=== PATIENT | male | born 1945 | race Caucasian/White ===

== ENCOUNTER → 2021-05-22 10:18 | Outpatient (BNVA) | payer MEDICARE, OTHER, SELFPAY | PROVIDERS: PCP Internal Medicine; Referring Provider Internal Medicine; Visit Provider Internal Medicine Cardiovascular Disease | DX: I25.10 Atherosclerotic heart disease of native coronary artery without angina pectoris (principal) | CPT/HCPCS: 93005; 99212 ==

== ENCOUNTER 2021-06-05 08:06 | Outpatient (REF) | payer MEDICARE, OTHER, SELFPAY ==
[2021-06-05 08:55] LABS: Cholesterol 149 mg/dL; HDL Cholesterol 59 mg/dL; LDL Cholesterol Calculated 79 mg/dl; Triglycerides 55 mg/dL
[2021-06-10 22:47] LABS: CRP High Sensitivity 0.5 mg/L
== END 2021-06-05 08:07 | disposition home or self-care (01) ==
LOC: HO.LAB 08:06
PROVIDERS: PCP Internal Medicine; Visit Provider Internal Medicine Cardiovascular Disease
DX: I25.10 Atherosclerotic heart disease of native coronary artery without angina pectoris (principal); E78.5 Hyperlipidemia, unspecified
CPT/HCPCS: 36415; 80061; 86141

== ENCOUNTER → 2022-05-26 10:33 | Outpatient (BNVA) | payer MEDICARE, SELFPAY | PROVIDERS: PCP Internal Medicine; Referring Provider Internal Medicine; Visit Provider Internal Medicine Cardiovascular Disease | DX: I25.10 Atherosclerotic heart disease of native coronary artery without angina pectoris (principal); Z79.82 Long term (current) use of aspirin; Z79.899 Other long term (current) drug therapy | CPT/HCPCS: 93005; 99212 ==

== ENCOUNTER 2023-03-30 14:12 | Outpatient (REF) | payer MEDICARE, SELFPAY ==
--- NOTE | ~2023-03-30 | XR_ITS ---
EXAMINATION: XR SHOULDER, LEFT CLINICAL INFORMATION: Left shoulder pain following fall COMPARISON: None available. TECHNIQUE: AP external rotation, Grashey, scapular Y, and axillary views of the left shoulder. FINDINGS: There is no evidence of fracture or dislocation. There are mild degenerative changes in acromioclavicular joint. There are subtle tissue calcification seen on single view, adjacent to greater tuberosity. XR/XR shoulder LT min 2V IMPRESSION: Mild degenerative changes in acromioclavicular joint and calcific tendinitis.
== END 2023-03-30 14:13 | disposition home or self-care (01) ==
LOC: HO.XRAY 14:12
PROVIDERS: PCP Internal Medicine; Visit Provider Internal Medicine
DX: M25.511 Pain in right shoulder (principal); Z91.81 History of falling
CPT/HCPCS: 73030

== ENCOUNTER 2023-05-27 10:08 | Outpatient (AMB) | payer MEDICARE, SELFPAY ==
[2023-05-27 10:18] VITALS: BP 140/70; PULSE 72; BMI 25.1
--- NOTE | 2023-05-27 10:18 | A.OFFVIS_ITS ---
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 He is doing well overall from cardiac perspective although he fell recently, couple of months ago and injured his left shoulder and is still in lot of discomfort. Is suspected rotator cuff injury. He has no issues with mobility and walking. Denies any exertional chest pain or shortness of breath. His blood pressure is generally well controlled. Today slightly elevated. Last LDL is 49 mg/dL done at an outside facility. Takes all his medications. No heart failure symptoms. No prolonged palpitations irregular heartbeat. [facility] Medical History CAD (coronary artery disease) Surgical History Stented coronary artery History of ERCP Hx laparoscopic cholecystectomy Family History Father No problems noted. Mother CHF (congestive heart failure) Social History Patient Tobacco Use Status: Former Tobacco user Review of Systems Const Reports chills, Reports fatigue, Reports fever(s), Reports frequent falls, Reports weakness, Reports weight gain and Reports weight loss ENT Reports dizziness Card Reports chest pain, Reports leg edema, Reports lightheadedness, Reports palpitations, Reports dyspnea and Reports dyspnea on exertion Resp Reports cough, Reports dyspnea and Reports dyspnea on exertion GI Reports hematochezia Musc Reports abnormal gait, Reports muscle weakness, Reports numbness, Reports radiating pain into limb and Reports tingling Neuro Reports abnormal gait, Reports dizziness, Reports frequent falls, Reports numbness, Reports tingling and Reports weakness Endo Reports fatigue and Reports palpitations Physical Exam Vital Signs: Last Vital Signs Pulse 72 05/27/23 10:18 BP 140/70 H 05/27/23 10:18 BMI result Body Mass Index 25.1 Const General: cooperative, comfortable, no acute distress, well developed, alert, awake, Physically active and well groomed Nutritional Appearance: average body habitus and well nourished Orientation/consciousness: patient oriented x3 Limitations: no limitations Neck Neck: Yes trachea midline, Yes supple and Yes no JVD Resp Effort & Inspection: normal respiratory effort Auscultation: clear to auscultation bilaterally Cardio Jugular venous distension: no JVD Palpation: normal PMI Rate: regular rate Rhythm: regular rhythm Heart sounds: S1 normal heart sound present, S2 normal heart sound present, no click, no gallops and no murmurs Peripheral pulses: Peripheral pulses 2+ throughout GI Auscultation: normal bowel sounds Skin General skin exam: no rashes or lesions noted Neuro General: patient oriented x3 and no focal motor deficits Extrem General: Yes no clubbing, cyanosis or edema Office Procedures EKG Details: EKG shows normal sinus rhythm with normal EKG at 72 beats per minute [id number], Complete Assessment & Plan Assessment & Plan (1) CAD (coronary artery disease): Code(s): I25.10 - Atherosclerotic heart disease of [place] coronary artery without angina pectoris Plan: CAD with prior stenting for a crescendo angina. Currently not having symptoms. Bifurcation stenting. Continue low-dose aspirin therapy for life. Continue high-intensity statin therapy with well optimized LDL. Continue maintain activity level as tolerated. Will suggest exercise myocardial perfusion imaging to evaluate for stent patency as well as progressive atherosclerosis in other segments. Discussed with him. He is agreeable. Will schedule with 1-2 months time once his shoulder improves (2) HTN (hypertension): Code(s): I10 - Essential (primary) hypertension Plan: Hypertension with borderline elevated readings today. Patient is currently otherwise well stabilized on on losartan therapy importance of good blood pressure control was discussed advised to monitor blood pressure at home and maintain a log. Better pain control. Stress mitigation strategies. Avoidance of high salt diet. Will follow up in the clinic in 1 year's time, sooner p.r.n.. Thank you for allowing me to partake in his care Coding Level of Care Code Est Pt Level 4 (36451) Diagnoses CAD (coronary artery disease) I25.10 HTN (hypertension) I10 CPT Codes EKG - CPT: 04203-[id number], Complete ([id number])
== END 2023-05-27 10:46 | disposition home or self-care (01) ==
PROVIDERS: Visit Provider Internal Medicine Cardiovascular Disease
DX: I25.10 Atherosclerotic heart disease of native coronary artery without angina pectoris (principal); I10 Essential (primary) hypertension
CPT/HCPCS: 93010; 99214

== ENCOUNTER → 2023-05-27 10:08 | Outpatient (BNVA) | payer MEDICARE, SELFPAY | PROVIDERS: Visit Provider Internal Medicine Cardiovascular Disease | DX: I25.10 Atherosclerotic heart disease of native coronary artery without angina pectoris (principal); I10 Essential (primary) hypertension | CPT/HCPCS: 93005; 99212 ==

== ENCOUNTER 2023-06-01 10:13 | Outpatient (REF) | payer MEDICARE, SELFPAY ==
--- NOTE | ~2023-06-01 | MR_ITS ---
EXAMINATION: MR SHOULDER WITHOUT CONTRAST, LEFT CLINICAL INFORMATION: Left shoulder pain and decreased range of motion. COMPARISON: Left shoulder radiographs dated 03/30/2023. TECHNIQUE: MRI of the shoulder was performed using routine sequences on a high-field scanner. FINDINGS: ROTATOR CUFF: Complete, full-thickness tear of the supraspinatus tendon and extending through the majority of the infraspinatus tendon with a few irregular posterior tendon fibers remaining intact. Overall tearing measures up to 5.0 x 5.2 cm (AP by ML) with the torn tendon fibers retracted proximal to the glenohumeral articulation. Near-complete full-thickness tear of the subscapularis tendon with thin inferior tendon fibers remaining intact. The torn tendon fibers retracted proximal to the glenohumeral articulation. Edema within the supraspinatus, infraspinous, and subscapularis muscles, consistent with acute muscle strains. Moderate supraspinatus, infraspinatus, and subscapularis muscle atrophy. BICEPS: Attenuation and irregularity of the intra-articular long head biceps tendon, consistent with longitudinal partial tearing. CORACOACROMIAL ARCH: The undersurface of the acromion is flat with small subacromial spurs. Moderate acromioclavicular osteoarthritis. LABRUM/CAPSULE: Diffuse heterogeneous signal throughout the superior and posterosuperior labrum, consistent with degenerative tearing. Intact inferior joint capsule. GLENOHUMERAL JOINT/MARROW: Superior subluxation of the humeral head related to the rotator cuff tendon tear. Mild glenohumeral articular cartilage signal heterogeneity and surface irregularity with small marginal osteophytes. Minimal marrow edema within the greater tuberosity. [id number]-[id number] joint effusion with synovitis. MR/MR shoulder LT wo con IMPRESSION: 1. Complete, full-thickness tear of the supraspinatus tendon extending through the majority of the infraspinatus tendon with a few irregular posterior tendon fibers remaining intact. The torn tendon fibers are retracted proximal to the glenohumeral articulation. Moderate supraspinatus, infraspinatus, and subscapularis muscle atrophy with mild muscle strains. 2. Near-complete full-thickness tear of the subscapularis tendon with thin inferior tendon fibers remaining intact. Moderate subscapularis muscle atrophy. 3. Longitudinal partial tearing of the intra-articular long head biceps tendon. 4. Moderate acromioclavicular osteoarthritis with small subacromial spurs. 5. Diffuse degenerative tearing of the superior and posterosuperior labrum. 6. Superior subluxation of the humeral head related to the rotator cuff tendon tear. Mild glenohumeral osteoarthritis. Multiple moderate joint effusion with synovitis.
== END 2023-06-01 10:14 | disposition home or self-care (01) ==
LOC: HO.MRI 10:13
PROVIDERS: PCP Internal Medicine; Visit Provider Internal Medicine
DX: M25.512 Pain in left shoulder (principal)
CPT/HCPCS: 73221

== ENCOUNTER 2023-06-05 11:00 | Outpatient (RCR) | payer MEDICARE, SELFPAY | END 2023-06-05 11:19 | disposition home or self-care (01) | LOC: HO.PTCHIC 11:00 | PROVIDERS: PCP Internal Medicine; Visit Provider Internal Medicine | DX: S49.92XD Unspecified injury of left shoulder and upper arm, subsequent encounter (principal) | CPT/HCPCS: 97110; 97140; 97161 ==

== ENCOUNTER 2024-05-19 10:42 | Outpatient (REF) | payer MEDICARE, SELFPAY ==
[2024-05-19 11:04] LABS: MANUAL DIFF FLAG NO
[2024-05-19 12:10] LABS: Basophils Absolute Auto 0.1 X10*3/uL (0.0-0.2); Basophils Percent Auto 1.4 % (0-2); Eosinophils Absolute Auto 0.4 X10*3/uL (0.0-0.4); Eosinophils Percent Auto 6.8 % (0-4); Hematocrit 40.7 % (42.0-52.0); Hemoglobin 13.6 g/dl (14.0-18.0); Imm Gran Abs Auto 0.03 X10*3/uL (0.00-0.03); Imm Gran Pct Auto 0.5 % (0.0-0.4); Lymphocytes Absolute Auto 1.4 X10*3/uL (1.2-4.9); Lymphocytes Percent Auto 22.2 % (20-40); Mean Corpuscular HGB Conc 33.4 g/dl (31.0-36.0); Mean Corpuscular Hemoglobin 29.6 pg (27.0-33.0); Mean Corpuscular Volume 88.7 fL (80.0-98.0); Mean Platelet Volume 9.7 fL (9.4-12.4); Monocytes Absolute Auto 0.7 X10*3/uL (0.1-1.2); Monocytes Percent Auto 11.4 % (2-11); Neutrophils Absolute Auto 3.7 x10*3/uL (2.0-8.3); Neutrophils Percent Auto 57.7 % (45-73); Platelet Count 215 X10*3/uL (160-400); Red Blood Count 4.59 X10*6/uL (4.60-5.80); Red Cell Distribution Width 12.6 % (11.0-16.0); White Blood Count 6.4 X10*3/uL (4.8-10.8)
[2024-05-19 12:51] LABS: Alanine Aminotransferase 29 U/L (0-40); Albumin Level 4.1 g/dL (3.5-5.0); Alkaline Phosphatase 68 U/L (39-117); Anion Gap 11 (12-20); Aspartate Amino Transferase 36 U/L (5-37); Blood Urea Nitrogen 15 mg/dL (9-16); Calcium 9.6 mg/dL (8.4-10.2); Carbon Dioxide 29 mmol/L (22-29); Chloride 106 mmol/L (96-108); Cholesterol 125 mg/dL (<200); Estimated Glomerular Filt Rate > 60; Glucose Fasting 99 mg/dL (60-99); HDL Cholesterol 54 mg/dL (>40); LDL Cholesterol Calculated 62 mg/dL (<100); Potassium 4.5 mmol/L (3.3-5.1); Sodium 141 mmol/L (135-145); Total Protein 7.5 g/dL (6.5-8.0); Triglycerides 47 mg/dL (<150)
[2024-05-19 13:06] LABS: Prostate Specific Antigen 0.72 ng/mL (<0.05-4.0)
== END 2024-05-19 10:43 | disposition home or self-care (01) ==
LOC: HO.LAB 10:42
PROVIDERS: PCP Internal Medicine; Visit Provider Internal Medicine
DX: R53.83 Other fatigue (principal); Z13.1 Encounter for screening for diabetes mellitus; Z12.5 Encounter for screening for malignant neoplasm of prostate; E78.5 Hyperlipidemia, unspecified
CPT/HCPCS: 36415; 80053; 80061; 84153; 85025

== ENCOUNTER 2024-05-26 12:25 | Outpatient (AMB) | payer MEDICARE, SELFPAY ==
[2024-05-26 12:30] VITALS: BP 128/82; PULSE 77; BMI 26.0
--- NOTE | 2024-05-26 12:30 | MHC.OFFVIS ---
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 Patient has no new cardiac symptoms. Remains very active. He said he climbs [address] for coming to the office in his no exertional chest pain or shortness of breath. Takes all his medications. He said he tried without losartan for a month and noted that his blood pressure is elevated. Losartan brought it back to normal limits. He was no symptoms of shortness of breath, orthopnea, PND. Last LDL of 62 mg/dL. ON LICENSE OF [facility] Medical History CAD (coronary artery disease) Surgical History Stented coronary artery History of ERCP Hx laparoscopic cholecystectomy Family History Father No problems noted. Mother CHF (congestive heart failure) Social History Patient Tobacco Use Status: Former Tobacco user Review of Systems Const Denies chills, Denies fatigue, Denies fever(s), Denies frequent falls, Denies weakness, Denies weight gain and Denies weight loss ENT Denies dizziness Card Denies chest pain, Denies leg edema, Denies lightheadedness, Denies palpitations, Denies dyspnea, Denies dyspnea on exertion, Denies orthopnea and Denies other (loss of consciousness) Resp Denies cough, Denies dyspnea and Denies dyspnea on exertion GI Denies hematochezia and Denies change in stool character Musc Denies abnormal gait, Denies muscle weakness, Denies numbness, Denies radiating pain into limb and Denies tingling Neuro Denies abnormal gait, Denies dizziness, Denies frequent falls, Denies numbness, Denies tingling and Denies weakness Endo Denies fatigue and Denies palpitations Physical Exam Vital Signs: Last Vital Signs Pulse 77 05/26/24 12:30 BP 128/82 05/26/24 12:30 BMI result Body Mass Index 26.0 Const General: cooperative, comfortable, no acute distress, well developed, alert, awake, Physically active and well groomed Nutritional Appearance: average body habitus and well nourished Orientation/consciousness: patient oriented x3 Limitations: no limitations Neck Neck: Yes trachea midline, Yes supple and Yes no JVD Resp Effort & Inspection: normal respiratory effort Auscultation: clear to auscultation bilaterally Cardio Jugular venous distension: no JVD Palpation: normal PMI Rate: regular rate Rhythm: regular rhythm Heart sounds: S1 normal heart sound present, S2 normal heart sound present, no click, no gallops and no murmurs Peripheral pulses: Peripheral pulses 2+ throughout GI Auscultation: normal bowel sounds Skin General skin exam: no rashes or lesions noted Neuro General: patient oriented x3 and no focal motor deficits Extrem General: Yes no clubbing, cyanosis or edema Office Procedures EKG Details: EKG shows normal sinus rhythm with small Q-wave in lead 3 most likely due to body habitus unlikely inferior infarct [id number], Complete Assessment & Plan Assessment & Plan (1) CAD (coronary artery disease): Code(s): I25.10 - Atherosclerotic heart disease of [place] coronary artery without angina pectoris Category: Medical Plan: CAD status post drug-eluting stent to the circumflex territory without any new symptoms. Currently doing extremely well. Continue low-dose aspirin therapy for life. Continue high-intensity statin therapy with well optimized LDL 62 mg/dL. Continue maintain activity level as tolerated. Continue aggressive blood pressure control. (2) HTN (hypertension): Code(s): I10 - Essential (primary) hypertension Category: Medical Plan: Hypertension which is currently well optimized advised to monitor blood pressure at home maintain a log. Goal blood pressure less than 130/84. Low-salt diet was discussed. Continue activity level as tolerated. Will follow up in the clinic in 1 year's time, sooner p.r.n.. Thank you for allowing me to partake in his care Coding Level of Care Code Est Pt Level 4 (89973) Complex EM visit Add On G2211 Diagnoses CAD (coronary artery disease) I25.10 HTN (hypertension) I10 CPT Codes EKG - CPT: 48851-[id number], Complete ([id number])
== END 2024-05-26 13:25 | disposition home or self-care (01) ==
PROVIDERS: PCP Internal Medicine; Visit Provider Internal Medicine Cardiovascular Disease
DX: I25.10 Atherosclerotic heart disease of native coronary artery without angina pectoris (principal); I10 Essential (primary) hypertension
CPT/HCPCS: 93010; 99214; G2211

== ENCOUNTER → 2024-05-26 12:25 | Outpatient (BNVA) | payer MEDICARE, SELFPAY | PROVIDERS: PCP Internal Medicine; Visit Provider Internal Medicine Cardiovascular Disease | DX: I25.10 Atherosclerotic heart disease of native coronary artery without angina pectoris (principal); I10 Essential (primary) hypertension | CPT/HCPCS: 93005; 99212 ==

== ENCOUNTER 2024-06-03 13:04 | Outpatient (REF) | payer MEDICARE, SELFPAY ==
--- NOTE | ~2024-06-03 | XR_ITS ---
EXAMINATION: XR KNEE, LEFT CLINICAL INFORMATION: LEFT KNEE PAIN, RULE OUT DJD COMPARISON: 02/05/2017 TECHNIQUE: Four views of the left knee. FINDINGS: No fracture or joint effusion. Alignment is anatomic. Joint space narrowing and osteophyte formation is seen within the lateral compartment of the femoral-tibial joint consistent with mild osteoarthritis. Calcified body is seen in the in the posterior knee joint which has increased in size and currently measures 2.6 x 1.8 cm XR/XR knee LT 4V IMPRESSION: 1. 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 2. Calcified body in the posterior knee joint which has increased in size. Electronically signed by: Melvin Hart MD 06/05/2024 10:53 AM SUNNY
== END 2024-06-03 13:05 | disposition home or self-care (01) ==
LOC: HO.XRAY 13:04
PROVIDERS: PCP Internal Medicine; Visit Provider Internal Medicine
DX: M25.562 Pain in left knee (principal)
CPT/HCPCS: 73564

== ENCOUNTER 2024-06-14 12:17 | Outpatient (REF) | payer MEDICARE, SELFPAY ==
--- NOTE | ~2024-06-14 | XR_ITS ---
EXAMINATION: XR CHEST CLINICAL INFORMATION: Cough. COMPARISON: XR Chest 03/23/2019 TECHNIQUE: 2 views of the chest were obtained. FINDINGS: The lungs are expanded with left basilar atelectasis and/or scarring. Elevated right hemidiaphragm is noted. Heart size and pulmonary vascularity is normal. No gross bony abnormality seen except for moderate spondylosis lower and mid dorsal spine. XR/XR chest 2V IMPRESSION: Left basilar atelectasis and/or scarring. Electronically signed by: Redd Park MD 06/17/2024 02:52 PM EST RP
== END 2024-06-14 12:18 | disposition home or self-care (01) ==
LOC: HO.HMGCX 12:17
PROVIDERS: PCP Internal Medicine; Visit Provider Internal Medicine
DX: R05.9 Cough, unspecified (principal)
CPT/HCPCS: 71046

== ENCOUNTER → 2024-06-14 12:21 | Outpatient (BNV) | payer MEDICARE, SELFPAY | PROVIDERS: PCP Internal Medicine; Visit Provider Radiology Diagnostic Radiology | DX: J98.11 Atelectasis (principal) | CPT/HCPCS: 71046 ==

== ENCOUNTER 2024-06-21 09:44 | Outpatient (REF) | payer MEDICARE, SELFPAY ==
--- NOTE | ~2024-06-21 | XR_ITS ---
EXAMINATION: XR CHEST 2 VIEWS HISTORY: COUGH, F/U PNA COMPARISON: Comparison is made with the prior examination dated 06/14/2024. FINDINGS: PA and lateral views of the chest are submitted. Again seen are increased interstitial markings in both lower lobes. There is no focal airspace opacity. The upper lung zones are clear. There is no pleural effusion, pneumothorax, or pulmonary vascular congestion. The heart is normal in size. There is degenerative disc disease of the spine. XR/XR chest 2V IMPRESSION: Chronic changes at both lung bases. Electronically signed by: Daniel Mtz MD 06/23/2024 09:40 AM EST
--- NOTE | ~2024-06-21 | MR_ITS ---
EXAMINATION: MR LUMBAR SPINE WITHOUT IV CONTRAST History: DISC PROTRUSION CHRONIC PAIN Technique: Sagittal T1, T2 and STIR, and axial T1 and T2 weighted images of the lumbar spine were obtained per departmental protocol. Comparison: Comparison is made with the prior examination dated 11/27/2015. Findings: There are mild chronic compression deformities of L2 and L3. The remaining vertebral bodies maintain normal height. There is mild dextroscoliosis. Bone marrow signal intensity is normal. At T12-L1,there is no evidence of disc herniation, central spinal stenosis, or neural foraminal narrowing. At L1-2, there is a mild disc bulge. There is mild facet and ligamentum flavum hypertrophy without central spinal or neural foraminal stenosis. At L2-3, there is a mild to moderate diffuse disc bulge. There is facet and ligamentum flavum hypertrophy causing narrowing of the inferior recess of the right neural foramen and left neural foraminal stenosis. There is no central spinal stenosis. At L3-4, there is posterior spurring and a mild disc bulge. There is facet and ligamentum flavum hypertrophy causing bilateral neural foraminal stenosis. At L4-5, there is a mild disc bulge. There is mild facet osteoarthritis causing mild left neural foraminal stenosis. At L5-S1, there is a small central disc protrusion which causes mass effect on the thecal sac. There is an associated annular tear. This appears slightly larger than on the prior study. There is facet osteoarthritis on the right causing neural foraminal stenosis. There is no central spinal or left neural foraminal narrowing. The conus terminates at the T12-L1 level and demonstrates normal signal intensity. The visualized paraspinal soft tissues are unremarkable. MR/MR lumbar spine wo con Impression: 1. Chronic mild compression deformities of L2 and L3. No acute fracture is seen. 2. Degenerative changes as described. 3. Small central disc protrusion at L5-S1, slightly larger than on the prior study. Electronically signed by: Daniel Mtz MD 06/23/2024 07:20 AM SUNNY
== END 2024-06-21 09:45 | disposition home or self-care (01) ==
LOC: HO.MRI 09:44
PROVIDERS: PCP Internal Medicine; Visit Provider Internal Medicine
DX: M51.26 Other intervertebral disc displacement, lumbar region (principal); Z87.01 Personal history of pneumonia (recurrent)
CPT/HCPCS: 71046; 72148

== ENCOUNTER → 2024-06-21 17:43 | Outpatient (BNV) | payer MEDICARE, SELFPAY | PROVIDERS: PCP Internal Medicine; Visit Provider Radiology Diagnostic Radiology | DX: M54.50 Low back pain, unspecified (principal); R05.9 Cough, unspecified | CPT/HCPCS: 71046; 72148 ==

== ENCOUNTER 2025-03-07 14:25 | Outpatient (AMB) | payer MEDICARE, SELFPAY ==
--- NOTE | 2025-03-07 14:22 | MHC.PC.OV ---
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 Accompanied by: Self / Same As Patient Allergies pantoprazole (Protonix) Allergy (Unknown, Verified 03/07/25 14:22) rash Tobacco use date assessed: 03/07/25 Fall risk assessment: No Falls in past year Last assessed Fall Risk: 03/07/25 Dental Screening Dental Screen Date: 03/07/25 Did you have a dental visit in the last 12 months?: No Did you have a dental problem in the last 6 months where you did not have access to dental care?: No [facility] Medical History CAD (coronary artery disease) Surgical History Stented coronary artery History of ERCP Hx laparoscopic cholecystectomy Family History Father No problems noted. Mother CHF (congestive heart failure) Social History (Updated 03/07/25 @ 14:47 by JEFF Aguirre) Housing: House Alcohol intake: current Alcohol intake frequency: a few times a week Patient Tobacco Use Status: Former Tobacco user service: No Current occupational status: retired Cognitive needs: No Hearing needs: No Vision needs: Yes (rx glasses) Questionnaire PHQ-9 Over the last 2 weeks, how often have you been bothered by any of the following problems? 1. Little interest or pleasure in doing things: not at all 2. Feeling down, depressed, or hopeless: not at all 3. Trouble falling or staying asleep, or sleeping too much: not at all 4. Feeling tired or having little energy: not at all 5. Poor appetite or overeating: not at all 6. Feeling bad about yourself - or that you are a failure or have let yourself or your family down: not at all 7. Trouble concentrating on things, such as reading the newspaper or watching television: not at all 8. Moving or speaking so slowly that other people could have noticed. Or the opposite - being so fidgety or restless that you have been moving around a lot more than usual: not at all 9. Thoughts that you would be better off or of hurting yourself in some way: not at all Total score: 0 Source: Developed by Drs. Daniel Martinez, Eladia Pitts, Darin Richter and colleagues, with an educational ze from [employer]. Thrive Questionnaire Date Thrive assessed: 03/07/25 I am a: Patient What is your living situation today?: I have a steady place to live Within the past 12 months, did the food you bought not last and you didn't have the money to get more?: Never true Within the past 12 months, did you worry whether your food would run out before you got money to buy more?: Never true Do you have trouble paying for medicines?: No Do you have trouble getting transportation to medical appointments?: No Do you have trouble paying your heating and electricity bill?: No Do you have trouble taking care of your child, family member or friend?: No Do you have trouble with day-to-day activities such as bathing, preparing meals, shopping, managing finances, etc.?: No Are you currently unemployed and looking for a job?: No Are you interested in more education?: No Please select the resources that you would like help with: None THRIVE Score: 0 AUDIT C Alcohol Use Questionnaire (AUDIT-C) 1. How often do you have a drink containing alcohol?: 2-3 times a week 2. How many drinks containing alcohol do you have on a typical day when you are drinking?: 1 or 2 3. How often do you have six or more drinks on one occasion?: Never Total Score: 3 LILA-7 AMB Questionnaire LILA-7 Date LILA - 7 assessed: 03/07/25 Feeling nervous, anxious, or on edge: 0 = Not at all Not being able to stop or control worryin = Not at all Worrying too much about different things: 0 = Not at all Trouble relaxin = Not at all Being so restless that it is hard to sit still: 0 = Not at all Becoming easily annoyed or irritable: 0 = Not at all Feeling afraid as if something awful might happen: 0 = Not at all Total LILA-7 score (0-4 normal; 5-9 mild; 10-14 moderate; 15-21 severe): 0 Source: Developed by Drs. Daniel Martinez, Eladia Pitts, Darin Richter and colleagues, with an educational ze from [employer]. Physical exam (Primary Care) Vital Signs: Last Vital Signs Temp 98.2 F 03/07/25 14:41 Pulse 72 03/07/25 14:41 Resp 16 03/07/25 14:41 BP 138/72 03/07/25 14:41 Pulse Ox 98 03/07/25 14:41 Oxygen Delivery Method Room Air 03/07/25 14:41 BMI result Body Mass Index 25.5 Tobacco/Smoking Status: Tobacco use Status Tobacco use date assessed 03/07/25 03/07/25 14:24 Patient Tobacco Use Status Former Tobacco user 03/07/25 14:47 PHQ-9: PHQ-9 Score PHQ-9: Total score 0 03/07/25 14:50 Thrive Assessment: Date of Thrive Assessment Date Thrive assessed 03/07/25 03/07/25 14:24 Office Procedures Flu Questionnaire Does the patient have a severe egg allergy?: No Does the patient have severe life threatening allergies?: No Does the patient have a fever or illness today?: No Has the patient ever had Guillain-[place] Syndrome?: No Has the patient ever had any past reaction to a flu shot?: No Immunizations Fluarix [id number] (PF) 45 mcg (15 mcg x 3)/0.5 mL IM syringe Performing Provider: Álvaro Schilling MD [facility] Documented (not given) by: JEFF Aguirre on 03/07/25 14:50 Reason Not Given: Patient Refused Coding Level of Care Code Complex EM visit Add On G2211 Diagnoses HTN (hypertension) I10 CAD (coronary artery disease) I25.10 Assessment & Plan Assessment & Plan (1) HTN (hypertension): Code(s): I10 - Essential (primary) hypertension Category: Medical Plan: BW ordered. Will call with results (2) CAD (coronary artery disease): Code(s): I25.10 - Atherosclerotic heart disease of [place] coronary artery without angina pectoris Category: Medical Plan: Condition is stable. Plan History of Present Illness - The patient is a 79-year-old male presenting with osteoarthritis of the left knee. - Reports difficulty rising from a chair and getting up after working on a car due to knee pain, ongoing for years. - Knee pain is exacerbated by twisting and relieved by rest, with occasional use of ibuprofen for relief. - X-ray in May 2024 showed significant arthritis and a calcified point in the knee, with a suspected meniscus tear. - Has not seen an renewals specialist for the knee. - History of spinal issues, including compression deformities in L2 and L3 and bulging discs at L1 and L2, following a 12-foot fall seven to eight years ago. - Spinal MRI in June showed no spinal stenosis, and back pain has since dissipated. Social History - Employment: Retired electrician second, occasionally assists with electrical issues. - Family: Has five children, one boy and four girls, with a grandson living at home. Review of Systems - Musculoskeletal: Reports knee pain exacerbated by twisting, relieved by rest. Denies morning stiffness. - Neurological: Denies current back pain, reports past spinal issues. Physical Exam General: Cooperative and healthy appearing Nutritional Appearance: Well nourished Orientation/consciousness: Patient oriented x3 Limitations: No limitations Head: Normal to inspection General: Appearance normal, both eyes and all related structures Neck: Normal visual inspection Chest: Normal palpation of entire chest wall Respiratory: Breathe in, breathe out, breathe in, breathe out, breathe in, breathe out, breathe in, breathe in, breathe in, breathe okay. ormal respiratory effort Neurology: Patient oriented x3 Results - Imaging: X-ray of the left knee in May 2024 showed significant arthritis and a calcified point, suspected meniscus tear. - Imaging: Spinal MRI in June showed compression deformities in L2 and L3, bulging discs at L1 and L2, no spinal stenosis. Plan - Start Extra Strength Tylenol for knee pain management. - Consider orthopedic referral for steroid injection if pain persists. - Order blood work with fasting requirement. - Schedule follow-up in six months to evaluate treatment efficacy. Discussion Notes I discussed with the patient the management of his knee osteoarthritis, recommending the use of Extra Strength Tylenol as a first step. If pain persists, we will consider a referral to orthopedics for a possible steroid injection. I also advised on the need for blood work, which requires fasting, and scheduled a follow-up in six months to reassess his condition and treatment response. Patient Instructions - Take Extra Strength Tylenol as directed for knee pain. - Fast before your blood work appointment. - Follow up in six months or sooner if symptoms worsen. Orders: Orders Influenza [id number] Immunization Today Z23 - Encounter for immunization Thyroid Stimulating Hormone Today I10 - Essential (primary) hypertension, I25.10 - Atherosclerotic heart disease of [place] coronary artery without angina pectoris UA and rflx microscopic Today I10 - Essential (primary) hypertension, I25.10 - Atherosclerotic heart disease of [place] coronary artery without angina pectoris Basic Metabolic Panel Today I10 - Essential (primary) hypertension, I25.10 - Atherosclerotic heart disease of [place] coronary artery without angina pectoris Complete Blood Count no Diff Today I10 - Essential (primary) hypertension, I25.10 - Atherosclerotic heart disease of [place] coronary artery without angina pectoris Lipid Panel Today I10 - Essential (primary) hypertension, I25.10 - Atherosclerotic heart disease of [place] coronary artery without angina pectoris
[2025-03-07 14:41] VITALS: BP 138/72; PULSE 72; RESP 16; TEMP 36.8; O2SAT 98; BMI 25.5
== END 2025-03-07 15:42 | disposition home or self-care (01) ==
LOC: HO.HMCSH 14:25
PROVIDERS: PCP Internal Medicine; Visit Provider Internal Medicine
DX: M17.12 Unilateral primary osteoarthritis, left knee (principal); I10 Essential (primary) hypertension; I25.10 Atherosclerotic heart disease of native coronary artery without angina pectoris; Z23 Encounter for immunization

== ENCOUNTER → 2025-03-07 14:25 | Outpatient (BNVA) | payer MEDICARE, SELFPAY | PROVIDERS: PCP Internal Medicine; Visit Provider Internal Medicine | DX: I10 Essential (primary) hypertension (principal); I25.10 Atherosclerotic heart disease of native coronary artery without angina pectoris; M17.12 Unilateral primary osteoarthritis, left knee; Z28.21 Immunization not carried out because of patient refusal | CPT/HCPCS: 96127; 99202 ==

== ENCOUNTER 2025-03-10 07:36 | Outpatient (REF) | payer MEDICARE, SELFPAY ==
[2025-03-10 10:36] LABS: Hematocrit 42.0 % (42.0-52.0); Hemoglobin 13.9 g/dl (14.0-18.0); Mean Corpuscular HGB Conc 33.1 g/dl (31.0-36.0); Mean Corpuscular Hemoglobin 30.0 pg (27.0-33.0); Mean Corpuscular Volume 90.5 fL (80.0-98.0); NRBC Abs Auto 0.000 X10*3/uL (0.0-0.012); NRBC Pct Auto 0.0 /100WBC (0.0-0.2); Platelet Count 180 X10*3/uL (160-400); Red Blood Count 4.64 X10*6/uL (4.60-5.80); White Blood Count 5.9 X10*3/uL (4.8-10.8)
[2025-03-10 11:19] LABS: Sodium 142 mmol/L (135-145)
[2025-03-10 11:20] LABS: Anion Gap 8 (12-20); Blood Urea Nitrogen 14 mg/dL (9-16); Calcium 9.3 mg/dL (8.4-10.2); Carbon Dioxide 31 mmol/L (22-29); Chloride 107 mmol/L (96-108); Cholesterol 138 mg/dL (<200); Estimated Glomerular Filt Rate > 60; HDL Cholesterol 59 mg/dL (>40); Potassium 4.2 mmol/L (3.3-5.1); Thyroid Stimulating Hormone 3.08 uIU/mL (0.32-4.0); Triglycerides 50 mg/dL (<150)
[2025-03-10 13:20] LABS: Appearance Urine Clear; Glucose Urine UA Negative (Negative); PH 7.0 (5.0-9.0); Specific Gravity - Urine 1.020 (1.005-1.025)
== END 2025-03-10 07:37 | disposition home or self-care (01) ==
LOC: HO.HMGCLNP 07:36
PROVIDERS: PCP Internal Medicine; Visit Provider Internal Medicine
DX: I10 Essential (primary) hypertension (principal); I25.10 Atherosclerotic heart disease of native coronary artery without angina pectoris
CPT/HCPCS: 80048; 80061; 81003; 84443; 85027

== ENCOUNTER 2025-05-31 10:54 | Outpatient (AMB) | payer MEDICARE, SELFPAY ==
[2025-05-31 11:04] VITALS: BP 126/80; PULSE 67; BMI 26.0
--- NOTE | 2025-05-31 11:04 | MHC.OFFVIS ---
Vital Signs 05/31/25 11:04 Height 6 ft Weight 191 lb 12.835 oz BMI 26.0 BP 126/80 Blood Pressure Location Lt brachial Position Sitting Pulse 67 Pulse Source Monitor Intake Visit Reasons: 1 year follow-up with ekg Intake Note: 1 year follow up with ekg Gym Teacher Required: No Accompanied by: Self / Same As Patient Allergies pantoprazole (Protonix) Allergy (Unknown, Verified 05/31/25 11:07) rash Medication List - Last Reconciled 05/31/25 by Daniel Brenner MD aspirin (Adult Aspirin Regimen) 81 mg PO BID atorvastatin 40 mg PO DAILY HPI Comments Details: Vitor comes for follow-up. He remains pretty active in his day-to-day life. However said he does not exercise on regular basis. However he said he can not go for long walks without any symptoms of exertional chest pain or shortness of breath. Takes all his medications. Last LDL well optimized. He denies any heart failure symptoms. Denies any lack of balance. Denies any lightheadedness, syncope. No orthopnea, PND, leg edema. No prolonged palpitation irregular heartbeat. [facility] Medical History CAD (coronary artery disease) Surgical History Stented coronary artery History of ERCP Hx laparoscopic cholecystectomy Family History Father No problems noted. Mother CHF (congestive heart failure) Social History Housing: House Alcohol intake: current Alcohol intake frequency: a few times a week Patient Tobacco Use Status: Former Tobacco user service: No Current occupational status: retired Cognitive needs: No Hearing needs: No Vision needs: Yes (rx glasses) Review of Systems Const Denies daytime sleepiness, Denies difficulty sleeping, Denies snoring, Denies stops breathing during sleep and Denies weakness Card Denies chest pain, Denies rapid heart rate, Denies irregular heart rhythm, Denies claudication, Denies leg edema, Denies lightheadedness, Denies palpitations, Denies dyspnea, Denies dyspnea on exertion, Denies orthopnea, Denies paroxysmal nocturnal dyspnea and Denies slow heart rate Resp Denies cough, Denies dyspnea, Denies dyspnea on exertion and Denies snoring GI Reports no additional complaints, Denies hematochezia, Denies change in stool character and Denies dyspepsia Musc Denies abnormal gait, Denies muscle weakness and Denies numbness Neuro Denies abnormal gait, Denies numbness and Denies weakness Endo Denies palpitations Physical Exam Vital Signs: Last Vital Signs Pulse 67 05/31/25 11:04 BP 126/80 05/31/25 11:04 BMI result Body Mass Index 26.0 Const General: cooperative, comfortable, no acute distress, well developed, alert, awake, Physically active and well groomed Nutritional Appearance: average body habitus and well nourished Orientation/consciousness: patient oriented x3 Limitations: no limitations Neck Neck: Yes trachea midline, Yes supple and Yes no JVD Resp Effort & Inspection: normal respiratory effort Auscultation: clear to auscultation bilaterally Cardio Jugular venous distension: no JVD Palpation: normal PMI Rate: regular rate Rhythm: regular rhythm Heart sounds: S1 normal heart sound present, S2 normal heart sound present, no click, no gallops and no murmurs Peripheral pulses: Peripheral pulses 2+ throughout GI Auscultation: normal bowel sounds Skin General skin exam: no rashes or lesions noted Neuro General: patient oriented x3 and no focal motor deficits Extrem General: Yes no clubbing, cyanosis or edema Office Procedures EKG Details: EKG shows normal sinus rhythm with T-wave inversion in lead 3 and AVF [id number], Complete Assessment & Plan Assessment & Plan (1) CAD (coronary artery disease): Code(s): I25.10 - Atherosclerotic heart disease of [place] coronary artery without angina pectoris Category: Medical Plan: Stable CAD with prior circumflex stenting for crescendo angina. Since then he has done well with no recurrent symptoms at current point in time. Continue low-dose aspirin therapy for life. Continue high-intensity statin therapy with well optimized LDL. He is currently in good functional status and encouraged to maintain activity level as tolerated. His blood pressure is currently optimized without any medications. Encouraged to maintain blood pressure checks at home and maintain a log. Goal blood pressure less than 130/84. Advised to call me with any new symptoms. Will follow up in the clinic in 1 year's time, sooner PRN. Thank you for allowing me to partake in his care Coding Level of Care Code Est Pt Level 4 (96124) Diagnoses CAD (coronary artery disease) I25.10 CPT Codes EKG - CPT: 77489-[id number], Complete ([id number])
== END 2025-05-31 11:27 | disposition home or self-care (01) ==
LOC: HO.HCS 10:55
PROVIDERS: PCP Internal Medicine; Visit Provider Internal Medicine Cardiovascular Disease
DX: I25.10 Atherosclerotic heart disease of native coronary artery without angina pectoris (principal)
CPT/HCPCS: 93010; 99214

== ENCOUNTER → 2025-05-31 10:54 | Outpatient (BNVA) | payer MEDICARE, SELFPAY | PROVIDERS: PCP Internal Medicine; Visit Provider Internal Medicine Cardiovascular Disease | DX: I25.10 Atherosclerotic heart disease of native coronary artery without angina pectoris (principal); I10 Essential (primary) hypertension; Z95.5 Presence of coronary angioplasty implant and graft | CPT/HCPCS: 93005; 99212 ==